=== PATIENT | female | born 1985 | race Two or more races ===

== ENCOUNTER 2017-11-13 19:04 | Emergency (ER) | payer SELFPAY ==
[2017-11-13 19:12] VITALS: BMI 26.2
[2017-11-13 19:31] LABS: BILIRUBIN,URINE NEGATIVE (NEGATIVE); BLOOD/HEMOGLOBIN,URINE 1+ (NEGATIVE); GLUCOSE, URINE 1+ (NEGATIVE); KETONES,URINE NEGATIVE (NEGATIVE); LEUKOCYTE ESTERASE ,URINE 2+ (NEGATIVE); NITRITES,URINE NEGATIVE (NEGATIVE); PROTEIN,URINE NEGATIVE (NEGATIVE); UROBILINOGEN,URINE NORMAL (NORMAL)
[2017-11-13 19:34] LABS: APPEARANCE,URINE CLOUDY (CLEAR); COLOR,URINE YELLOW (YELLOW)
[2017-11-13 19:40] LABS: BACTERIA,URINE TRACE /HPF (NEGATIVE); SQUAMOUS EPITHELIAL CELL,UR MODERATE /HPF (NEGATIVE)
[2017-11-13 19:42] LABS: AMNISURE ROM TEST NO MEMBRANES RUPTURE (NO RUPTURE)
[2017-11-13 19:47] LABS: BASOPHILS # (AUTO) 0.1 X10^3/uL (0.0-0.1); BASOPHILS % (AUTO) 0.8 % (0.2-1.0); EOSINOPHILS # (AUTO) 0.3 x10^3/uL (0.0-0.2); EOSINOPHILS % (AUTO) 2.7 % (0.9-2.9); HEMATOCRIT 32.8 % (36.0-47.0); HEMOGLOBIN 11.3 g/dL (12.0-16.0); LYMPHOCYTES # (AUTO) 1.9 X10^3/uL (1.3-2.9); LYMPHOCYTES % (AUTO) 20.7 % (21.0-51.0); MEAN CORPUSCULAR HEMOGLOBIN 27.6 pg (27.0-34.0); MEAN CORPUSCULAR HGB CONC 34.4 g/dL (33.0-35.0); MEAN CORPUSCULAR VOLUME 80.3 fL (80.0-100.0); MEAN PLATELET VOLUME 9.2 fL (7.4-11.0); MONOCYTES # (AUTO) 0.5 x10^3/uL (0.3-0.8); MONOCYTES % (AUTO) 5.3 % (0.0-13.0); NEUTROPHILS # (AUTO) 6.6 x10^3/uL (2.2-4.8); NEUTROPHILS % (AUTO) 70.5 % (42.0-75.0); PLATELET COUNT 285 X10^3/uL (150.0-450.0); RED BLOOD COUNT 4.09 X10^6/uL (3.5-5.4); WHITE BLOOD COUNT 9.3 X10^3/uL (3.6-10.0)
[2017-11-13 19:49] LABS: BLOOD UREA NITROGEN 8 mg/dL (7-18); CALCIUM 8.1 mg/dL (8.5-10.1); CARBON DIOXIDE 22.9 mmol/L (21-32); CHLORIDE 104 mmol/L (98-107); COR NA(FOR HYPERGLY) 138 mmol/L (136-145); CREATININE 0.41 mg/dL (0.55-1.02); SODIUM 137 mmol/L (136-145); eGFR BLACK RACES > 60 (>60); eGFR NON BLACK RACES > 60 (>60)
--- NOTE | 2017-11-13 21:19 | US ---
HISTORY: Lower abdominal pain, no care, unknown LMP Study: OB ultrasound greater than 14 weeks Comparison: None Technique: Multiple grayscale and color flow Doppler images of the pelvis were obtained with focused evaluation of the fetus. Findings: A single living intrauterine gestation is identified with heart tones of 133 beats per minute. A breech presentation is observed. The placenta is fundal. Amniotic fluid appears grossly normal. 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 There is a questionable cleft palate. Value (cm) Estimated Gestational Age BPD 8.35 33 weeks 4 days HC 31.26 35 weeks 0 days AC 31.98 35 weeks 6 days FL 6.31 32 weeks 4 days Average age by ultrasound: 34 weeks 2 days DANNY by ultrasound: 12/23/2017 Estimated weight: 2498 g (5.51 lb) IMPRESSION: Single living intrauterine gestation as detailed above measuring 34 weeks 2 days with heart rat e 133 bpm. There is a questionable cleft palate, continued attention on follow-up is recommended. The remaining visualized anatomy appears within normal limits. Reported By:
[2017-11-13 22:02] VITALS: BP 104/54
== END 2017-11-13 21:56 | disposition home or self-care (01) ==
LOC: ER 19:18
DX: R10.84 Generalized abdominal pain (principal); Z3A.34 34 weeks gestation of pregnancy
CPT/HCPCS: 36415; 76815; 80048; 81001; 83020; 84112; 84702; 85025; 86592; 86850; 86900; 86901; 99284

== ENCOUNTER 2017-12-30 11:53 | Inpatient (IN) | payer SELFPAY ==
[2017-12-30 12:19] VITALS: BMI 33.5
[2017-12-30 12:22] LABS: BILIRUBIN,URINE NEGATIVE (NEGATIVE); BLOOD/HEMOGLOBIN,URINE 3+ (NEGATIVE); GLUCOSE, URINE NEGATIVE (NEGATIVE); KETONES,URINE NEGATIVE (NEGATIVE); LEUKOCYTE ESTERASE ,URINE 1+ (NEGATIVE); NITRITES,URINE NEGATIVE (NEGATIVE); PROTEIN,URINE NEGATIVE (NEGATIVE); UROBILINOGEN,URINE NORMAL (NORMAL)
[2017-12-30 12:23] LABS: APPEARANCE,URINE HAZY (CLEAR); COLOR,URINE STRAW (YELLOW)
[2017-12-30 12:30] LABS: BACTERIA,URINE TRACE /HPF (NEGATIVE); MUCUS,URINE RARE /HPF (NEGATIVE); RBC,URINE 0-2 /HPF (NONE SEEN); SQUAMOUS EPITHELIAL CELL,UR MODERATE /HPF (NEGATIVE)
[2017-12-30] MEDS ORDERED: PITOCIN IVP ONE (12:30)
[2017-12-30] MEDS ORDERED: D5 1/2 NS 1000 ML 1,000 ML IV SCH (12:30)
[2017-12-30] MEDS ORDERED: D5 1/2 NS 1000 ML 1,000 ML IV ONE (12:31)
[2017-12-30 12:35] LABS: BASOPHILS # (AUTO) 0.1 X10^3/uL (0.0-0.1); BASOPHILS % (AUTO) 0.6 % (0.2-1.0); EOSINOPHILS # (AUTO) 0.2 x10^3/uL (0.0-0.2); HEMATOCRIT 31.3 % (36.0-47.0); HEMOGLOBIN 10.5 g/dL (12.0-16.0); LYMPHOCYTES # (AUTO) 1.5 X10^3/uL (1.3-2.9); LYMPHOCYTES % (AUTO) 16.3 % (21.0-51.0); MEAN CORPUSCULAR HEMOGLOBIN 25.1 pg (27.0-34.0); MEAN CORPUSCULAR HGB CONC 33.6 g/dL (33.0-35.0); MEAN CORPUSCULAR VOLUME 74.5 fL (80.0-100.0); MEAN PLATELET VOLUME 8.8 fL (7.4-11.0); MONOCYTES # (AUTO) 0.7 x10^3/uL (0.3-0.8); MONOCYTES % (AUTO) 7.5 % (0.0-13.0); NEUTROPHILS # (AUTO) 6.6 x10^3/uL (2.2-4.8); NEUTROPHILS % (AUTO) 73.6 % (42.0-75.0); PLATELET COUNT 276 X10^3/uL (150.0-450.0); RED BLOOD COUNT 4.21 X10^6/uL (3.5-5.4); RED CELL DISTRIBUTION WIDTH 16.9 % (11.6-16.5)
[2017-12-30 12:40] LABS: BLOOD UREA NITROGEN 8 mg/dL (7-18); CALCIUM 7.9 mg/dL (8.5-10.1); CHLORIDE 104 mmol/L (98-107); SODIUM 137 mmol/L (136-145); eGFR BLACK RACES > 60 (>60); eGFR NON BLACK RACES > 60 (>60)
[2017-12-30 12:45] LABS: ANISOCYTOSIS SLIGHT; HYPOCHROMASIA SLIGHT; MICROCYTOSIS SLIGHT; PLATELET MORPHOLOGY COMMENT NORMAL (NORMAL)
[2017-12-30 12:53] LABS: RAPID PLASMA REAGIN NONREACTIVE (NONREACTIVE)
[2017-12-30] MEDS ORDERED: D5 1/2 NS 1L W PITOCIN 20 UNITS/L 20 UNITS/1,000 ML BAG IV ONE (13:23)
[2017-12-30] MEDS ORDERED: PITOCIN ONE (13:23)
[2017-12-30] MEDS ORDERED: D5 1/2 NS 1000 ML 1,000 ML with PITOCIN 20 UNITS IV SCH ×2 (14:00)
[2017-12-30] MEDS ORDERED: AMBIEN PO PRN (14:22)
[2017-12-30] MEDS ORDERED: MOTRIN TAB 800 MG PO PRN (14:22)
[2017-12-30] MEDS ORDERED: ADACEL TDaP IM ONE (14:22)
[2017-12-30] MEDS ORDERED: MILK OF MAGNESIA PO PRN (14:22)
[2017-12-30] MEDS: ZANTAC PO SCH (21:08)
[2017-12-31 05:24] LABS: HEMATOCRIT 32.2 % (36.0-47.0); HEMOGLOBIN 10.6 g/dL (12.0-16.0)
[2017-12-31] MEDS: ZANTAC PO SCH ×2 (08:24→20:56)
[2017-12-31] MEDS: PRENATAL PLUS PO SCH (08:24)
[2017-12-31] MEDS ORDERED: NORCO 5/325 MG TAB PO PRN (09:25)
[2017-12-31] MEDS ORDERED: ADACEL TDaP IM ONE (10:00)
[2018-01-01] MEDS: ZANTAC PO SCH (09:03)
[2018-01-01] MEDS: PRENATAL PLUS PO SCH (09:03)
[2018-01-01 13:01] VITALS: BP 130/78
--- NOTE | 2018-01-03 10:14 | DR.PREG ---
HPI - PCP Primary Care Physician: NFD - Chief Complaint Chief Complaint:: PATIENT CAME INTO THE ED C/O PAIN TO THE LOWER ABD. 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 WHEN WE ABRAHAM THE LANGUAGE LINE THEY STATED THE PAIN STARTED 1 HOUR AGO AND DENIES ANY RUPTURE OF MEMBRANES. SHE IS G-3 P-2 A-0. - Source History Provided: Patient - Mode of Arrival Mode of Arrival: Ambulatory - Timing Onset of Chief Complaint: 12/30/17 PMH - PMH Past Medical History: No Past Surgical History: No - Family History History of Family Medical Conditions: Yes Family Medical History: Diabetes Mellitus, Hypertension - Social History Does patient currently use any type of tobacco product: No Have you used tobacco products in the last 12 months: No Type of Tobacco Use: None Does any household member use tobacco: No Alcohol Use: None Do you use any recreational Drugs:: No Lives With: Significant Other Lives Where: Home - infectious screening In the last 2 months have you had wt loss of >10#?: NO Have you had fever, night sweats or hemotysis?: No Have you traveled outside the country in the last 6 months?: No Isolation: Standard PE - Vital Signs Vitals: Temperature 98.2 F Pulse Rate 89 Respiratory Rate 20 Blood Pressure [Right Arm] 104/54 Blood Pressure 137/90 O2 Sat by Pulse Oximetry 99 ROR - Labs Reviewed Result Diagrams: 12/31/17 04:25 12/30/17 12:22 Laboratory: WBC 9.0 X10^3/uL (3.6-10.0) 12/30/17 12:22 RBC 4.21 X10^6/uL (3.5-5.4) 12/30/17 12:22 Hgb 10.6 g/dL (12.0-16.0) L 12/31/17 04:25 Hct 32.2 % (36.0-47.0) L 12/31/17 04:25 MCV 74.5 fL (80.0-100.0) L 12/30/17 12:22 MCH 25.1 pg (27.0-34.0) L 12/30/17 12:22 MCHC 33.6 g/dL (33.0-35.0) 12/30/17 12:22 RDW 16.9 % (11.6-16.5) H 12/30/17 12: Plt Count 276 X10^3/uL (150.0-450.0) 12/30/17 12: Plt Count Comment Adequate (ADEQUATE) 12/30/17 12: MPV 8.8 fL (7.4-11.0) 12/30/17 12: Neut % (Auto) 73.6 % (42.0-75.0) 12/30/17 12: Lymph % (Auto) 16.3 % (21.0-51.0) L 12/30/17 12: [place] % (Auto) 7.5 % (0.0-13.0) 12/30/17 12: Eos % (Auto) 2.0 % (0.9-2.9) 12/30/17: Baso % (Auto) 0.6 % (0.2-1.0) 12/30/17 12: Neut # (Auto) 6.6 x10^3/uL (2.2-4.8) H 12/30/17 12: Lymph # (Auto) 1.5 X10^3/uL (1.3-2.9) 12/30/17 12: [place] # (Auto) 0.7 x10^3/uL (0.3-0.8) 12/30/17 12: Eos # (Auto) 0.2 x10^3/uL (0.0-0.2) 12/30/17 12: Baso # (Auto) 0.1 X10^3/uL (0.0-0.1) 12/30/17 12: Absolute Nucleated RBC 0.2 /100WBC 12/30/17 12: Plt Morphology Comment Normal (NORMAL) 12/30/17 12: RBC Morphology Abnormal (NORMAL) A 12/30/17: Hypochromasia Slight A 12/30/17 12: Anisocytosis Slight A 12/30/17 12: Microcytosis Slight A 12/30/17 12: Sickle Cell Solubility TNP 12/30/17 12:22 Hemoglobin A1 97.4 % 12/30/17 12: Hemoglobin A2 2.4 % 12/30/17 12: Hemoglobin C 0.0 % 12/30/17 12:22 Hemoglobin E 0.0 % 12/30/17 12:22 Hemoglobin F () 0.2 % 12/30/17 12:22 Hemoglobin S 0.0 % 12/30/17 12:22 Hgb (Cap Elec) TNP 12/30/17 12:22 Hgb ELP Interp See note 12/30/17 12:22 Hemoglobin Other 0.0 % 12/30/17 12:22 Sodium 137 mmol/L (136-145) 12/30/17 12:22 Corrected Sodium TNP 12/30/17 12:22 Potassium 3.5 mmol/L (3.5-5.1) 12/30/17 12:22 Chloride 104 mmol/L (98-107) 12/30/17 12:22 Carbon Dioxide 22.0 mmol/L (21-32) 12/30/17 12:22 BUN 8 mg/dL (7-18) 12/30/17 12:22 Creatinine 0.50 mg/dL (0.55-1.02) L 12/30/17 12:22 Est GFR (MDRD) Af Amer > 60 (>60) 12/30/17 12:22 Est GFR (MDRD) Non-Af > 60 (>60) 12/30/17 12:22 Glucose 89 mg/dL (65-99) 12/30/17 12:22 Calcium 7.9 mg/dL (8.5-10.1) L 12/30/17 12:22 Specimen Type Random urine 12/30/17 12:11 Urine Color Straw (YELLOW) 12/30/17 12:11 Urine Appearance Hazy (CLEAR) 12/30/17 12:11 Urine pH 7.0 (5.0 - 8.0) 12/30/17 12:11 Ur Specific [place] 1.005 (1.000-1.030) 12/30/17 12:11 Urine Protein Negative (NEGATIVE) 12/30/17 12:11 Urine Glucose (UA) Negative (NEGATIVE) 12/30/17 12:11 Urine Ketones Negative (NEGATIVE) 12/30/17 12:11 Urine Occult Blood 3+ (NEGATIVE) 12/30/17 12:11 Urine Nitrite Negative (NEGATIVE) 12/30/17 12:11 Urine Bilirubin Negative (NEGATIVE) 12/30/17 12:11 Urine Urobilinogen Normal (NORMAL) 12/30/17 12:11 Ur Leukocyte Esterase 1+ (NEGATIVE) 12/30/17 12:11 Urine RBC 0-2 /HPF (NONE SEEN) 12/30/17 12:11 Urine WBC 3-5 /HPF (NONE SEEN) 12/30/17 12:11 Ur Squamous Epith Cells Moderate /HPF (NEGATIVE) 12/30/17 12:11 Urine Bacteria Trace /HPF (NEGATIVE) 12/30/17 12:11 Urine Mucus Rare /HPF (NEGATIVE) 12/30/17 12:11 Ur Culture Indicated? No/not indicated 12/30/17 12:11 RPR Nonreactive (NONREACTIVE) 12/30/17 12:22 HIV-1 Ab Rapid Screen Negative (NEGATIVE) 12/30/17 12:22 Tissue Pathology To follow 12/30/17 14:08 Blood Type O POSITIVE 12/30/17 12:22 Antibody Screen Negative 12/30/17 12:22 - Discharge Plan Disposition: 09 ADMITTED INPATIENT Condition: Stable - Follow ups/Referrals - Instructions
== END 2018-01-01 12:15 | disposition home or self-care (01) | DRG 775 ==
LOC: ER 12:08 → LD 12:30 → MED/SURG 14:19
PROVIDERS: ADMIT Obstetrics & Gynecology Obstetrics; ATTEND Obstetrics & Gynecology Obstetrics
PROC: 10E0XZZ Delivery of Products of Conception, External Approach (ICD-10-PCS; principal; 2017-12-30)
PROC: 3E0234Z Introduction of Serum, Toxoid and Vaccine into Muscle, Percutaneous Approach (ICD-10-PCS; 2017-12-31)
DX: O32.8XX0 Maternal care for other malpresentation of fetus, not applicable or unspecified (principal); Z37.0 Single live birth; O09.33 Supervision of pregnancy with insufficient antenatal care, third trimester; Z3A.40 40 weeks gestation of pregnancy; Z23 Encounter for immunization
CPT/HCPCS: 36415; 59409; 80048; 81001; 83020; 85014; 85018; 85025; 86592; 86701; 86850; 86900; 86901; 96365; 99282; 99284; A4216; A4222; S0197; J2590; J7042